=== PATIENT | female | born 1985 | race Caucasian/White ===

== ENCOUNTER 2018-06-03 09:26 | Emergency (ER) | payer SELFPAY | END 2018-06-03 11:36 | disposition home or self-care (01) | LOC: ER 09:26 | DX: G89.29 Other chronic pain (principal); M87.88 Other osteonecrosis, other site; M25.551 Pain in right hip; Z88.8 Allergy status to other drugs, medicaments and biological substances | CPT/HCPCS: 73502; 99284 ==